=== PATIENT | female | born 1940 | race Caucasian/White ===

== ENCOUNTER 2019-10-26 15:07 | Emergency (ER) | payer MEDICARE, MEDICAID ==
[2019-10-26] MEDS ORDERED: FAMOTIDINE INJ/PF 20 MG/2 ML SDV IV ONE (15:18)
--- NOTE | 2019-10-26 15:27 | ER Document Report ---
Entered by TRI MIRANDA SCRIBE 10/26/19 1521 Acting as scribe for:JESUS GRAY MD ED Allergic Reaction - General Chief Complaint: Allergic Reaction Stated Complaint: POSSIBLE ALLERGIC REACTION Time Seen by Provider: 10/26/19 15:08 Primary Care Provider: BILLIE TALAVERA PA [Primary Care Provider] - Follow up tomorrow Mode of Arrival: Medic Information source: Patient, [facility] Records Notes: This 78 year old female patient presents to the emergency department today with complaints of an allergic reaction to Macrobid. Patient states she went to her PCP this morning and was diagnosed with a UTI and was started on Macrobid. Patient states the symptoms she had been having to prompt the visit to the PCP is burning with urination and back pain for the last few weeks. Patient states about 2 hours after taking the Macrobid she became short of breath. Patient took Xanax thinking it was an anxiety attack which worsened her shortness of b reath. EMS states when they arrived on scene the patient had an oxygen saturation of 84% on room air and she was wheezing throughout. She was given 0.3 mg of epinephrine IM, 3 albuterol treatments, 1 DuoNeb, 50 mg of Benadryl IV, 1 g magnesium IV, 125mg Solu-Medrol IV prior to arrival. She is much improved at this time. EMS reports her color is back to normal appearing. There is no wheezing now. The patient states she feels fine now. TRAVEL OUTSIDE OF THE [place] IN LAST 30 DAYS: No - Related Data Allergies/Adverse Reactions: No Known Allergies Allergy (Unverified 11/10/14 13:13) Past Medical History - General Information source: Patient - Social History Smoking Status: Never Smoker Cigarette use (# per day): No Frequency of alcohol use: None Drug Abuse: None Lives with: Family Family History: Reviewed & Not Pertinent Pulmonary Medical History: Reports: Hx Bronchitis Renal/ Medical History: Reports: Hx Kidney Stones Musculoskeletal Medical History: Reports Hx Arthritis Psychiatric Medical History: Reports: Hx Anxiety Past Surgical History: Reports: Hx Appendectomy, Hx Hysterectomy, Hx Urinary Tract Surgery - Bladder tack - Immunizations Hx Diphtheria, Pertussis, Tetanus Vaccination: Yes Hx Pneumococcal Vaccination: 03/31/15 Review of Systems - Review of Systems Constitutional: No symptoms reported EENT: No symptoms reported Cardiovascular: No symptoms reported Respiratory: See HPI, Short of breath Gastrointestinal: No symptoms reported Genitourinary: See HPI, Burning, Dysuria, Flank pain, Pain Female Genitourinary: No symptoms reported Musculoskeletal: No symptoms reported Skin: No symptoms reported Hematologic/Lymphatic: No symptoms reported Neurological/Psychological: No symptoms reported -: Yes All other systems reviewed and negative Physical Exam - Vital signs Vitals: Resp Pulse Ox 26 H 87 L 10/26/19 15:13 10/26/19 15:13 - Notes Notes: Physical Exam: General: Alert, appears well. HEENT: Normocephalic. Atraumatic. PERRL. Extraocular movements intact. Oropharynx clear. Neck: Supple. Non-tender. Respiratory: No respiratory distress. Clear and equal breath sounds bilaterally. Cardiovascular: Regular rate and rhythm. Abdominal: Obese. Non-tender. No distension. Normal Bowel Sounds. Back: No gross abnormalities. Extremities: Moves all four extremities. Upper extremities: Normal inspection. Normal ROM. Lower extremities: Normal inspection. No edema. Normal ROM. Neurological: Normal cognition. AAOx4. Normal speech. Psychological: Normal affect. Normal Mood. Skin: Warm. Dry. Normal color. Course - Re-evaluation Re-evalutation: 10/26/19 18:32 I went to check on the patient to see about discharge. She remains tachycardic with a heart rate of 114. She states she does not feel well and is concerned that she lives alone. She does take Xanax 1 mg twice daily on a chronic basis. We will give her a liter of LR and 1 mg of Ativan IV and reevaluate. 10/26/19 18:44 When the nurse started the fluids and gave her the Ativan, she was requesting something for her headache. We will give her Tylenol 975 mg. 10/26/19 19:55 At this time the patient is feeling better. She does seem drowsy. Her heart rate is about 108. She is asking why her voice seems a little hoarse, but thinks it may be due to all the coughing that she did. 10/26/19 20:49 Repeat troponin was done and it is also undetectable. Patient will be discharged home at this time. - Vital Signs Vital signs: Temp Pulse Resp BP Pulse Ox 98.9 F 20 106/76 94 10/26/19 20:33 10/26/19 20:34 10/26/19 20:34 10/26/19 20:34 - Laboratory Result Diagrams: 10/26/19 16:18 10/26/19 16:18 Laboratory results interpreted by me: 10/26/19 10/26/19 10/26/19 16:18 16:18 17:39 WBC 12.5 H RDW 14.3 H Lymph % (Auto) 12.[address] [facility] % (Auto) 1.1 L Absolute Neuts (auto) 10.8 H Seg Neutrophils % 86.5 H Glucose 191 H Urine Ketones TRACE H Urine Ascorbic Acid 40 H - Diagnostic Test Radiology reviewed: Image reviewed - Chest x-ray does not show any acute changes. - EKG Interpretation by Me EKG shows normal: Sinus rhythm, [place], Intervals, QRS Complexes, ST-T Waves Rate: Tachycardia - 118 Discharge - Discharge Clinical Impression: Acute allergic reaction Qualifiers: Encounter type: initial encounter Qualified Code(s): T78.40XA - Allergy, u nspecified, initial encounter Condition: Stable Disposition: HOME, SELF-CARE Additional Instructions: Acute Allergic Reaction to Drugs Your symptoms are due to an allergic reaction. The physician feels that a medication you've taken is responsible. Medication allergy can cause hives, swelling of the hands, feet and face, hoarseness, and difficulty swallowing or breathing. This type of allergy can also be caused by animal dander, foods, infection, or insect bites. Medication can cause allergy even when prior use of this same medication caused no problems. Emergency treatment may include adrenalin and antihistamines. Home treatment includes the following: (1) Stop the suspected medication. (2) Oral antihistamines for the next four to five days (Benadryl, Atarax). (3) Avoid aspirin until the hives completely disappear. (4) Avoid hot baths or showers until the hives are completely gone. Call the doctor if faintness, difficulty swallowing, tightness in the chest or wheezing occurs. Your reaction today was most likely due to the Macrodantin/nitrofurantoin that you took for the urinary tract infection. The urine that was collected directly from your bladder does not appear infected. You will be given a copy of the urine report to provide to your doctor. The urine will be cultured. Take Benadryl every 4-6 hours today, and if needed if you start itching or having hives develop. Follow-up with your primary care provider tomorrow for recheck. RETURN TO THE EMERGENCY ROOM IF ANY NEW OR WORSENING SYMPTOMS. Referrals: BILLIE TALAVERA PA [Primary Care Provider] - Follow up tomorrow I personally performed the services described in the documentation, reviewed and edited the documentation which was dictated to the scribe in my presence, and it accurately records my words and actions.
[2019-10-26 16:40] LABS: ABSOLUTE LYMPHOCYTES (AUTO) 1.5 10^3/uL (0.5-4.7); ABSOLUTE MONOCYTES (AUTO) 0.1 10^3/uL (0.1-1.4); ABSOLUTE NEUT (AUTO) 10.8 10^3/uL (1.7-8.2); BASOPHILS % (AUTO) 0.2 % (0-2); EOSINOPHILS % (AUTO) 0.1 % (0-6); HEMOGLOBIN 13.2 g/dL (12.0-15.5); LYMPHOCYTES % (AUTO) 12.1 % (13-45); MEAN CORPUSCULAR HEMOGLOBIN 30.7 pg (27.0-33.4); MEAN CORPUSCULAR HGB CONC 33.9 g/dL (32.0-36.0); MEAN CORPUSCULAR VOLUME 91 fl (80-97); MONOCYTES % (AUTO) 1.1 % (3-13); PLATELET COUNT 291 10^3/uL (150-450); RED BLOOD COUNT 4.31 10^6/uL (3.72-5.28); RED CELL DISTRIBUTION WIDTH 14.3 % (11.5-14.0); SEGMENTED NEUTROPHILS % (AUTO) 86.5 % (42-78); TOTAL CELLS COUNTED % (AUTO) 100 %; WHITE BLOOD COUNT 12.5 10^3/uL (4.0-10.5)
[2019-10-26 16:59] LABS: ALBUMIN 3.9 g/dL (3.5-5.0); ALKALINE PHOSPHATASE 64 U/L (38-126); ANION GAP 11 (5-19); ASPARTATE AMINO TRANSFERASE 32 U/L (14-36); BILIRUBIN,TOTAL 0.3 mg/dL (0.2-1.3); BLOOD UREA NITROGEN 16 mg/dL (7-20); CALCIUM 8.7 mg/dL (8.4-10.2); CARBON DIOXIDE 23 mmol/L (22-30); CHLORIDE 105 mmol/L (98-107); CREATINE KINASE 40 U/L (30-135); GLUCOSE 191 mg/dL (75-110); POTASSIUM 3.6 mmol/L (3.6-5.0); TOTAL PROTEIN 6.9 g/dL (6.3-8.2)
[2019-10-26 17:56] LABS: APPEARANCE,URINE CLEAR; BILIRUBIN,URINE NEGATIVE (NEGATIVE); COLOR,URINE YELLOW; GLUCOSE, URINE NEGATIVE (NEGATIVE); KETONES,URINE TRACE mg/dL (NEGATIVE); LEUKOCYTE ESTERASE,URINE NEGATIVE (NEGATIVE); NITRITE,URINE NEGATIVE (NEGATIVE); PROTEIN,URINE NEGATIVE (NEGATIVE); URINE SPECIFIC GRAVITY 1.014; UROBILINOGEN,URINE NEGATIVE mg/dL (<2.0)
[2019-10-26] MEDS ORDERED: RINGERS SOLUTION,LACTATED 1,000 ML IV ONE (18:23)
[2019-10-26] MEDS ORDERED: LORAZEPAM INJ 2 MG/1 ML VIAL IV ONE ×2 (18:31)
[2019-10-26] MEDS ORDERED: ACETAMINOPHEN 325 MG TABLET PO ONE (18:44)
--- NOTE | 2019-10-26 20:50 | RADIOLOGY REPORT (SQ) ---
EXAM DESCRIPTION: AP portable radiograph of the chest CLINICAL HISTORY: 78 years Female, Acute allergic reaction COMPARISON: Portable view of the chest May 21, 2015 FINDINGS: Lungs: Lung volumes are low. There is crowding of the perihilar and infrahilar interstitial lung markings. Upper lobe vessel distention recruitment is seen. Subtle septal lines are noted. No pneumothorax. No definitive pleural effusion. Mediastinum: Heart size is enlarged and the mediastinum is widened. Vascular calcifications. Bones: Osseous structures are normal. IMPRESSION: Cardiomegaly with changes suggestive of increased intravascular volume.
[2019-10-26 21:11] VITALS: BP 118/62
--- NOTE | 2019-10-26 21:42 | EKG REPORT ---
SEVERITY:- ABNORMAL ECG - SINUS TACHYCARDIA ANTERIOR INFARCT, AGE INDETERMINATE : Confirmed by: Mari Gardner MD 26-Oct-2019 21:42:12
== END 2019-10-26 21:30 | disposition home or self-care (01) ==
LOC: ER 15:07
DX: T78.40XA Allergy, unspecified, initial encounter (principal); R51 Headache; X58.XXXA Exposure to other specified factors, initial encounter
CPT/HCPCS: 93005; 99284; 96361; 96374; 96375; 36415; 87086; 82550; 85025; 80053; 81001; 84484; 71045; 93010; A9270; J2060; J7120; S0028